=== PATIENT | male | born 1975 | race Caucasian/White ===

== ENCOUNTER 2023-10-24 15:44 | Emergency (ER) | payer OTHER ==
[~2023-10-24] VITALS: Ht 182.9 cm; Wt 95.3 kg
[2023-10-24 16:01] VITALS: BP 170/110; PULSE 100; RESP 16; TEMP 98.9; O2SAT 95
[2023-10-24 17:25] VITALS: BP 145/99; PULSE 88; RESP 16; TEMP 98.1; O2SAT 98
== END 2023-10-24 17:25 ==
LOC: MED 15:44
DX: S46.912A Strain of unspecified muscle, fascia and tendon at shoulder and upper arm level, left arm, initial encounter (principal); S39.012A Strain of muscle, fascia and tendon of lower back, initial encounter; W18.39XA Other fall on same level, initial encounter; Y92.89 Other specified places as the place of occurrence of the external cause; Y93.89 Activity, other specified; Y99.8 Other external cause status
CPT/HCPCS: 72100; 73030; 99284